=== PATIENT | female | born 1965 | race Caucasian/White ===

== ENCOUNTER 2016-10-20 13:17 | Outpatient (CLI) | payer OTHER | END 2016-10-20 13:18 | disposition home or self-care (01) | DX: M19.011 Primary osteoarthritis, right shoulder (principal); M75.51 Bursitis of right shoulder; M67.813 Other specified disorders of tendon, right shoulder ==

== ENCOUNTER 2017-04-18 08:50 | Outpatient (CLI) | payer OTHER ==
[2017-04-18 19:53] LABS: HEMOGLOBIN A1C 1.14 g/dL
[2017-04-18 19:55] LABS: ALBUMIN/GLOBULIN RATIO 1.4 (1.0-2.2); BILIRUBIN,TOTAL 0.7 mg/dL (0.2-1.0); BUN - BLOOD UREA NITROGEN 11 mg/dL (6-20); CALCIUM 9.6 mg/dL (8.5-10.3); CARBON DIOXIDE - CO2 26 mmol/L (21-32); CHLORIDE 103 mmol/L (101-111); CHOL/HDL RATIO 3.3 (<4.4); CHOLESTEROL 205 mg/dL; CREATININE 0.7 mg/dL (0.4-1.0); GFR - MDRD 88 (>89); GLUCOSE 191 mg/dL (70-100); HDL CHOLESTEROL 62 mg/dL; LDL/HDL RATIO 1.8 (<4.4); POTASSIUM 4.1 mmol/L (3.5-5.0); SODIUM 137 mmol/L (135-145); TOTAL PROTEIN 7.6 g/dL (6.7-8.2); TRIGLYCERIDES 151 mg/dL; VLDL CHOLESTEROL 30 mg/dL
== END 2017-04-18 08:51 | disposition home or self-care (01) ==
LOC: LAB.WCP 08:50
PROVIDERS: ATTEND Physician Assistant Medical
DX: E11.9 Type 2 diabetes mellitus without complications (principal)
CPT/HCPCS: 36415; 80053; 80061; 83036

== ENCOUNTER 2017-07-15 08:00 | Outpatient (CLI) | payer OTHER ==
[2017-07-15 19:16] LABS: HEMOGLOBIN A1C 1.07 g/dL
[2017-07-15 19:22] LABS: ALBUMIN/GLOBULIN RATIO 1.3 (1.0-2.2); BILIRUBIN,TOTAL 0.7 mg/dL (0.2-1.0); BUN - BLOOD UREA NITROGEN 11 mg/dL (6-20); CALCIUM 9.5 mg/dL (8.5-10.3); CARBON DIOXIDE - CO2 25 mmol/L (21-32); CHLORIDE 101 mmol/L (101-111); CHOL/HDL RATIO 2.9 (<4.4); CHOLESTEROL 214 mg/dL; CREATININE 0.7 mg/dL (0.4-1.0); GFR - MDRD 88 (>89); GLUCOSE 163 mg/dL (70-100); HDL CHOLESTEROL 74 mg/dL; LDL/HDL RATIO 1.5 (<4.4); LIPASE 77 U/L (22-51); POTASSIUM 4.2 mmol/L (3.5-5.0); SODIUM 137 mmol/L (135-145); TOTAL PROTEIN 7.8 g/dL (6.7-8.2); TRIGLYCERIDES 151 mg/dL; VLDL CHOLESTEROL 30 mg/dL
== END 2017-07-15 08:01 | disposition home or self-care (01) ==
LOC: LAB.WCP 08:00
PROVIDERS: ATTEND Physician Assistant Medical
DX: E11.9 Type 2 diabetes mellitus without complications (principal); K76.0 Fatty (change of) liver, not elsewhere classified
CPT/HCPCS: 36415; 80053; 80061; 83036; 83690

== ENCOUNTER 2017-10-11 08:00 | Outpatient (CLI) | payer OTHER ==
[2017-10-11 14:17] LABS: HB2 TOTAL 14.9 g/dL; HEMOGLOBIN A1C 1.08 g/dL; HEMOGLOBIN A1C % 8.8 % (4.6-6.2)
[2017-10-11 14:21] LABS: ALBUMIN 4.3 g/dL (3.2-5.5); ALBUMIN/GLOBULIN RATIO 1.4 (1.0-2.2); BILIRUBIN,TOTAL 0.6 mg/dL (0.2-1.0); CALCIUM 9.1 mg/dL (8.5-10.3); CREATININE 0.6 mg/dL (0.4-1.0); TOTAL PROTEIN 7.4 g/dL (6.7-8.2)
== END 2017-10-11 08:01 | disposition home or self-care (01) ==
LOC: LAB.WCP 08:00
PROVIDERS: ATTEND Physician Assistant Medical
DX: E11.9 Type 2 diabetes mellitus without complications (principal)
CPT/HCPCS: 36415; 80053; 83036

== ENCOUNTER 2017-11-08 13:53 | Outpatient (CLI) | payer OTHER ==
--- NOTE | 2017-11-11 11:14 | Mammography Report ---
DIGITAL SCREENING MAMMOGRAM: 11/08/2017 CLINICAL INDICATION: A 51-year-old with a history of late childbearing, history of benign left breast biopsy for screening. COMPARISON: 04/2016, 11/2014, 05/2013, 03/2012, 03/2011, 03/2010. TECHNIQUE: Routine CC and MLO projections were obtained of the breasts as well as bilateral laterally exaggerated craniocaudal views. FINDINGS: Scattered fibroglandular tissue is present within the breasts. There are no dominant masses, suspicious microcalcifications, or secondary signs of malignancy. In comparison to the previous studies, there are no significant changes. IMPRESSION: NO MAMMOGRAPHIC EVIDENCE OF MALIGNANCY. NO SIGNIFICANT INTERVAL CHANGES. RECOMMENDATION: Screening mammography is recommended annually. BIRADS CATEGORY 1 - NEGATIVE. STANDARD QUALIFYING STATEMENTS: 1. This examination was reviewed with the aid of Computed-Aided Detection (CAD). 2. A negative or benign imaging report should not delay biopsy if clinically suspicious findings are present. Consider surgical consultation if warranted. More than 5% of cancers are not identified by imaging. 3. Dense breasts may obscure an underlying neoplasm. TD: 11/11/2017 11:13
== END 2017-11-08 13:54 | disposition home or self-care (01) ==
LOC: DI.N 13:53
PROVIDERS: ATTEND Physician Assistant Medical
DX: Z12.31 Encounter for screening mammogram for malignant neoplasm of breast (principal)
CPT/HCPCS: 77067

== ENCOUNTER 2018-02-14 11:05 | Outpatient (CLI) | payer OTHER ==
[2018-02-14 19:33] LABS: ALBUMIN/GLOBULIN RATIO 1.3 (1.0-2.2); ALKALINE PHOSPHATASE 58 IU/L (42-121); ALT ALANINE AMINOTRANSFERASE 35 IU/L (10-60); AST ASPARTATE AMINOTRANSFERASE 37 IU/L (10-42); BILIRUBIN,TOTAL 0.9 mg/dL (0.2-1.0); BUN - BLOOD UREA NITROGEN 11 mg/dL (6-20); CALCIUM 9.1 mg/dL (8.5-10.3); CARBON DIOXIDE - CO2 26 mmol/L (21-32); CHLORIDE 104 mmol/L (101-111); CHOL/HDL RATIO 2.6 (<4.4); CHOLESTEROL 176 mg/dL; CREATININE 0.7 mg/dL (0.4-1.0); GFR - MDRD 88 (>89); GLUCOSE 168 mg/dL (70-100); HDL CHOLESTEROL 68 mg/dL; LDL CHOLESTEROL,CALCULATED 84 mg/dL; LDL/HDL RATIO 1.2 (<4.4); SODIUM 137 mmol/L (135-145); VLDL CHOLESTEROL 24 mg/dL
[2018-02-14 19:56] LABS: HB2 TOTAL 14.2 g/dL; HEMOGLOBIN A1C 1.08 g/dL; HEMOGLOBIN A1C % 9.1 % (4.6-6.2)
== END 2018-02-14 11:06 | disposition home or self-care (01) ==
LOC: LAB.WCP 11:05
PROVIDERS: ATTEND Physician Assistant Medical
DX: E11.9 Type 2 diabetes mellitus without complications (principal)
CPT/HCPCS: 36415; 80053; 80061; 83036; 83721

== ENCOUNTER 2018-05-17 18:17 | Emergency (ER) | payer OTHER ==
[2018-05-17] MEDS ORDERED: HYDROcod/ACETAM 5/325 MG TABLET PO STA (19:18)
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
[2018-05-17 20:36] VITALS: BP 137/63
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
== END 2018-05-17 21:13 | disposition home or self-care (01) ==
LOC: ED 18:17
DX: R51 Headache (principal); S13.9XXA Sprain of joints and ligaments of unspecified parts of neck, initial encounter; S40.012A Contusion of left shoulder, initial encounter; R03.0 Elevated blood-pressure reading, without diagnosis of hypertension; E11.9 Type 2 diabetes mellitus without complications; V53.5XXA Driver of pick-up truck or van injured in collision with car, pick-up truck or van in traffic accident, initial encounter
CPT/HCPCS: 70450; 72125; 73030; 99283; A9270

== ENCOUNTER 2018-06-18 11:11 | Outpatient (CLI) | payer OTHER ==
[2018-06-18 19:09] LABS: CALCIUM 9.5 mg/dL (8.5-10.3); CREATININE 0.7 mg/dL (0.4-1.0)
[2018-06-18 19:34] LABS: HB2 TOTAL 14.7 g/dL; HEMOGLOBIN A1C 1.15 g/dL; HEMOGLOBIN A1C % 9.3 % (4.6-6.2)
== END 2018-06-18 11:12 | disposition home or self-care (01) ==
LOC: LAB.WCP 11:11
PROVIDERS: ATTEND Physician Assistant Medical
DX: E11.9 Type 2 diabetes mellitus without complications (principal)
CPT/HCPCS: 36415; 80048; 83036

== ENCOUNTER 2018-11-17 08:30 | Outpatient (CLI) | payer OTHER ==
[2018-11-17 14:57] LABS: HB2 TOTAL 14.2 g/dL; HEMOGLOBIN A1C 1.17 g/dL; HEMOGLOBIN A1C % 9.7 % (4.6-6.2)
[2018-11-17 14:58] LABS: ALBUMIN 4.1 g/dL (3.2-5.5); ALBUMIN/GLOBULIN RATIO 1.3 (1.0-2.2); ALKALINE PHOSPHATASE 61 IU/L (42-121); ALT ALANINE AMINOTRANSFERASE 30 IU/L (10-60); AST ASPARTATE AMINOTRANSFERASE 30 IU/L (10-42); BILIRUBIN,TOTAL 0.7 mg/dL (0.2-1.0); BUN - BLOOD UREA NITROGEN 13 mg/dL (6-20); CALCIUM 9.2 mg/dL (8.5-10.3); CARBON DIOXIDE - CO2 26 mmol/L (21-32); CHLORIDE 104 mmol/L (101-111); CHOL/HDL RATIO 2.9 (<4.4); CHOLESTEROL 168 mg/dL; CREATININE 0.7 mg/dL (0.4-1.0); GFR - MDRD 88 (>89); GLUCOSE 174 mg/dL (70-100); HDL CHOLESTEROL 57 mg/dL; LDL CHOLESTEROL,CALCULATED 77 mg/dL; LDL/HDL RATIO 1.4 (<4.4); SODIUM 137 mmol/L (135-145); TOTAL PROTEIN 7.3 g/dL (6.7-8.2); VLDL CHOLESTEROL 34 mg/dL
== END 2018-11-17 08:31 | disposition home or self-care (01) ==
LOC: LAB.WCP 08:30
PROVIDERS: ATTEND Physician Assistant Medical
DX: E11.9 Type 2 diabetes mellitus without complications (principal)
CPT/HCPCS: 36415; 80053; 80061; 83036; 83721

== ENCOUNTER 2018-11-20 08:46 | Outpatient (CLI) | payer OTHER | END 2018-11-20 08:47 | disposition home or self-care (01) | LOC: LAB.WCP 08:46 | PROVIDERS: ATTEND Physician Assistant Medical | DX: K76.9 Liver disease, unspecified (principal) | CPT/HCPCS: 36415; 83690 ==

== ENCOUNTER 2018-11-25 14:24 | Outpatient (CLI) | payer OTHER ==
--- NOTE | 2018-11-26 09:24 | Mammography Report ---
Reason: SCREENING MAMMO Procedure Date: 11/25/2018 Accession Number: [id number] / [id number] Procedure: MGN - Screening Mammo Dig Bilat CPT Code: FULL RESULT: EXAM: Screening Mammo Dig Bilat DATE: 11/25/2018 2:50 PM CLINICAL HISTORY: Routine screening. Prior history of left breast biopsy. TECHNIQUE: (B) - Bilateral CC and MLO views were obtained. COMPARISON: 11/08/2017, 05/11/2016, 12/14/2014 and 06/04/2013. PARENCHYMAL PATTERN: (A) - The breasts demonstrate scattered fibroglandular densities bilaterally. FINDINGS: There is no significant interval change. There are no suspicious masses, calcifications, or areas of distortion. IMPRESSION: Negative examination. BI-RADS category 1. RECOMMENDATION: (ANNUAL) - Recommend routine annual screening mammography. BI-RADS CATEGORY: (1) - Negative. STANDARD QUALIFYING STATEMENTS: 1. This examination was not reviewed with the aid of Computer-Aided Detection (CAD). 2. A negative or benign imaging report should not preclude biopsy if clinically suspicious findings are present. 3. Dense breasts may obscure an underlying neoplasm. 4. This examination was reviewed without the aid of 3D breast imaging (tomosynthesis).
== END 2018-11-25 14:25 | disposition home or self-care (01) ==
LOC: DI.N 14:24
DX: Z12.31 Encounter for screening mammogram for malignant neoplasm of breast (principal)
CPT/HCPCS: 77067

== ENCOUNTER 2019-02-20 08:00 | Outpatient (CLI) | payer OTHER ==
[2019-02-20 14:24] LABS: HB2 TOTAL 14.3 g/dL
[2019-02-20 14:25] LABS: HEMOGLOBIN A1C 1.2 g/dL; HEMOGLOBIN A1C % 9.8 % (4.6-6.2)
[2019-02-20 16:25] LABS: CALCIUM 9.1 mg/dL (8.5-10.3); CREATININE 0.6 mg/dL (0.4-1.0)
== END 2019-02-20 23:59 | disposition home or self-care (01) ==
LOC: LAB.WCP 08:00
PROVIDERS: ATTEND Physician Assistant Medical
DX: E11.9 Type 2 diabetes mellitus without complications (principal)
CPT/HCPCS: 36415; 80048; 83036

== ENCOUNTER 2019-05-21 08:00 | Outpatient (CLI) | payer OTHER ==
[2019-05-21 18:53] LABS: ALBUMIN 4.4 g/dL (3.2-5.5); ALBUMIN/GLOBULIN RATIO 1.4 (1.0-2.2); ALKALINE PHOSPHATASE 53 IU/L (42-121); ALT ALANINE AMINOTRANSFERASE 28 IU/L (10-60); AST ASPARTATE AMINOTRANSFERASE 25 IU/L (10-42); BILIRUBIN,TOTAL 0.9 mg/dL (0.2-1.0); BUN - BLOOD UREA NITROGEN 11 mg/dL (6-20); CALCIUM 9.7 mg/dL (8.5-10.3); CARBON DIOXIDE - CO2 29 mmol/L (21-32); CHLORIDE 104 mmol/L (101-111); CHOL/HDL RATIO 3.3 (<4.4); CHOLESTEROL 186 mg/dL; CREATININE 0.8 mg/dL (0.4-1.0); GFR - MDRD 75 (>89); GLUCOSE 149 mg/dL (70-100); HDL CHOLESTEROL 56 mg/dL; LDL CHOLESTEROL,CALCULATED 79 mg/dL; LDL/HDL RATIO 1.4 (<4.4); SODIUM 143 mmol/L (135-145); TOTAL PROTEIN 7.6 g/dL (6.7-8.2); VLDL CHOLESTEROL 51 mg/dL
[2019-05-21 19:43] LABS: HB2 TOTAL 14.7 g/dL; HEMOGLOBIN A1C 0.88 g/dL; HEMOGLOBIN A1C % 7.6 % (4.6-6.2)
== END 2019-05-21 08:01 | disposition home or self-care (01) ==
LOC: LAB.WCP 08:00
PROVIDERS: ATTEND Physician Assistant Medical
DX: E11.9 Type 2 diabetes mellitus without complications (principal)
CPT/HCPCS: 36415; 80053; 80061; 83036; 83721

== ENCOUNTER 2019-05-26 07:00 | Outpatient (CLI) | payer OTHER | END 2019-05-26 23:59 | disposition home or self-care (01) | LOC: LAB.WCP 07:00 | PROVIDERS: ATTEND Physician Assistant Medical | DX: R21 Rash and other nonspecific skin eruption (principal) | CPT/HCPCS: 81599; 87070; 87205; 87254; 87255 ==

== ENCOUNTER 2019-05-26 14:30 | Outpatient (CLI) | payer OTHER ==
--- NOTE | 2019-05-26 15:59 | XRAY Report ---
Reason: LUMBAR RADICULOPATHY Procedure Date: 05/26/2019 Accession Number: [id number] / [id number] Procedure: WCP - Lumbar Spine 2 View CPT Code: FULL RESULT: EXAM: LUMBOSACRAL SPINE RADIOGRAPHY EXAM DATE: 05/26/2019 02:30 PM. CLINICAL HISTORY: LUMBAR RADICULOPATHY. COMPARISONS: None. TECHNIQUE: 2 views. FINDINGS: Alignment: No spondylolisthesis. Minimal dextroscoliosis with rotatory component. Bones: Five wsq-udr-dzlhtkq lumbar vertebral bodies are present. No fractures or bone lesions. Disks: Disk heights are maintained. Facets: No degenerative changes. Sacroiliac Joints: Minimal degenerative change Soft Tissues: Unremarkable IMPRESSION: Negative two-view lumbar spine radiography for age. If symptoms persist consider MRI. RADIA
== END 2019-05-26 23:59 | disposition home or self-care (01) ==
LOC: DI.WCP 14:30
PROVIDERS: ATTEND Physician Assistant Medical
DX: M47.898 Other spondylosis, sacral and sacrococcygeal region (principal); M54.16 Radiculopathy, lumbar region
CPT/HCPCS: 72100

== ENCOUNTER 2019-06-02 13:10 | Outpatient (CLI) | payer OTHER ==
--- NOTE | 2019-06-03 02:22 | MRI Report ---
Reason: LUMBAR RADICULOPATHY Procedure Date: 06/02/2019 Accession Number: [id number] / [id number] Procedure: MRI - Lumbar Spine W/O CPT Code: Final Report FULL RESULT: EXAM: MRI LUMBAR SPINE WITHOUT CONTRAST EXAM DATE: 06/02/2019 02:36 PM. CLINICAL HISTORY: LUMBAR RADICULOPATHY. COMPARISON: LUMBAR SPINE 2 VIEW 05/26/2019 2:08 PM. TECHNIQUE: Multiplanar, multisequence T1-weighted and fluid-sensitive sequences of the lumbar spine from T12 to S1 without contrast. Other: None. FINDINGS: Spinal Canal: The conus terminates at upper L2. The conus medullaris and cauda equina are unremarkable. Alignment: No scoliosis or spondylolisthesis. Bone Marrow: Five sjl-wgm-xeqxgap lumbar vertebral bodies are assumed. No gross fractures or bone lesions. No bone marrow replacement. Disk Levels/Facets: T12-L1: There is a plaque-like region of hypointense signal on all sequences contiguous with the posterior annulus, extending to the upper aspect of T12. This measures roughly 3.5 mm AP by 22 mm craniocaudal by 10 mm transverse. Adjacent disk space appears normal. This is felt likely to represent a region of calcification of the posterior longitudinal ligament. There is no impingement on the conus. L1-L2: Unremarkable. L2-L3: Unremarkable. L3-L4: Minimal disk space narrowing and minimal bulging disk. Mild ligamentum flavum hypertrophy. No significant appearing central stenosis. Foramina appear patent. L4-L5: Disk height is mildly narrowed, eccentric to the right. Bulging disk. Bilateral ligamentum flavum hypertrophy. Mild central stenosis. Right-sided disk/endplate osteophyte complex directed laterally. Right-sided mild foraminal stenosis, left foramen appears patent. L5-S1: Mild disk space narrowing. Bulging disk. Mild central stenosis. Moderate to severe left-sided foraminal stenosis. Right foramen is mildly narrowed. Musculature: Normal. No edema or fatty atrophy. Other: The partially visualized retroperitoneum is unremarkable. IMPRESSION: 1. Findings most consistent with a region of calcification of the posterior longitudinal ligament at T12 extending over the T12-L1 disk space. No impingement on the conus. 2. L3-L4: Minimal disk space narrowing and minimal bulging disk. Mild ligamentum flavum hypertrophy. No significant appearing central stenosis. Foramina appear patent. 3. L4-L5: Disk height is mildly narrowed, eccentric to the right. Bulging disk. Bilateral ligamentum flavum hypertrophy. Mild central stenosis. Right-sided disk/endplate osteophyte complex directed laterally. Right-sided mild foraminal stenosis, left foramen appears patent. 4. L5-S1: Mild disk space narrowing. Bulging disk. Mild central stenosis. Moderate to severe left-sided foraminal stenosis, correlate with left L5 symptoms. Right foramen is mildly narrowed.5. Other disk spaces are unremarkable. Comment: The following findings are so common in adults without low back pain that while we report their presence, they must be interpreted with caution and in the context of the clinical situation. (Reference Paulk et al, Spine 2001) Prevalence of findings in patients without low back pain: Disk degeneration (any evidence): 92% Disk desiccation/T2 signal loss: 83% Disk height loss: 56% Disk bulge: 64% Disk protrusion: 32% Annular tear/high intensity zone: 38% RADIA
== END 2019-06-02 13:11 | disposition home or self-care (01) ==
LOC: DI 13:10
PROVIDERS: ATTEND Physician Assistant Medical
DX: M51.16 Intervertebral disc disorders with radiculopathy, lumbar region (principal); M48.061 Spinal stenosis, lumbar region without neurogenic claudication
CPT/HCPCS: 72148

== ENCOUNTER 2019-08-28 08:00 | Outpatient (CLI) | payer OTHER ==
[2019-08-28 19:09] LABS: CALCIUM 9.6 mg/dL (8.5-10.3); CREATININE 0.7 mg/dL (0.4-1.0)
[2019-08-28 19:31] LABS: HB2 TOTAL 14.3 g/dL; HEMOGLOBIN A1C 0.83 g/dL; HEMOGLOBIN A1C % 7.5 % (4.6-6.2)
== END 2019-08-28 23:59 | disposition home or self-care (01) ==
LOC: LAB.WCP 08:00
PROVIDERS: ATTEND Physician Assistant Medical
DX: E11.9 Type 2 diabetes mellitus without complications (principal)
CPT/HCPCS: 36415; 80048; 83036

== ENCOUNTER 2019-12-25 08:00 | Outpatient (CLI) | payer OTHER ==
[2019-12-25 13:29] LABS: BASOPHILS # (AUTO) 0.1 10^3/uL (0.0-0.1); EOSINOPHILS # (AUTO) 0.2 10^3/uL (0.0-0.7); HGB - HEMOGLOBIN 13.3 g/dL (12.0-16.0); LYMPHOCYTES % (AUTO) 38.4 %; MEAN CORPUSCULAR HEMOGLOBIN 29.7 pg (27.0-31.0); MEAN CORPUSCULAR HGB CONC 32.7 g/dL (32.0-36.0); MEAN CORPUSCULAR VOLUME 90.8 fL (81.0-99.0); MEAN PLATELET VOLUME 8.9 fL (7.9-10.8); MONOCYTES # (AUTO) 0.4 10^3/uL (0.0-1.0); NEUTROPHILS # (AUTO) 2.7 10^3/uL (1.5-6.6); NEUTROPHILS % (AUTO) 50.4 %; PLT - PLATELET COUNT 242 10^3/uL (130-450); RED BLOOD COUNT 4.48 10^6/uL (4.20-5.40); RED CELL DISTRIBUTION WIDTH 11.9 % (12.0-15.0); WHITE BLOOD COUNT 5.3 x10^3/uL (4.8-10.8)
[2019-12-25 14:01] LABS: ALBUMIN 4.1 g/dL (3.2-5.5); ALBUMIN/GLOBULIN RATIO 1.2 (1.0-2.2); ALKALINE PHOSPHATASE 57 IU/L (42-121); ALT ALANINE AMINOTRANSFERASE 34 IU/L (10-60); AST ASPARTATE AMINOTRANSFERASE 32 IU/L (10-42); BILIRUBIN,TOTAL 0.6 mg/dL (0.2-1.0); BUN - BLOOD UREA NITROGEN 11 mg/dL (6-20); CALCIUM 9.6 mg/dL (8.5-10.3); CARBON DIOXIDE - CO2 27 mmol/L (21-32); CHLORIDE 103 mmol/L (101-111); CHOLESTEROL 198 mg/dL; CREATININE 0.8 mg/dL (0.4-1.0); GLUCOSE 143 mg/dL (70-100); HDL CHOLESTEROL 67 mg/dL; LDL CHOLESTEROL,CALCULATED 97 mg/dL; LDL/HDL RATIO 1.4 (<4.4); LIPASE 88 U/L (22-51); SODIUM 140 mmol/L (135-145); TOTAL PROTEIN 7.6 g/dL (6.7-8.2); VLDL CHOLESTEROL 34 mg/dL
[2019-12-25 14:10] LABS: HEMOGLOBIN A1C 0.75 g/dL; HEMOGLOBIN A1C % 7.1 % (4.6-6.2)
[2019-12-25 14:14] LABS: CREATININE,URINE 131.7 mg/dL; MICROALBUM/CREATININE RATIO,UR 73.7 ug/mg (<30.0); MICROALBUMIN,URINE 9.7 mg/dL (0-300.0)
== END 2019-12-25 23:59 | disposition home or self-care (01) ==
LOC: LAB.WCP 08:00
PROVIDERS: ATTEND Physician Assistant Medical
DX: E11.9 Type 2 diabetes mellitus without complications (principal); K86.1 Other chronic pancreatitis; K76.9 Liver disease, unspecified; R74.8 Abnormal levels of other serum enzymes
CPT/HCPCS: 36415; 80053; 80061; 82043; 82150; 82570; 83036; 83690; 83721; 84443; 85025

== ENCOUNTER 2020-01-15 11:02 | Outpatient (CLI) | payer OTHER ==
--- NOTE | 2020-01-18 12:27 | Mammography Report ---
BILATERAL DIGITAL SCREENING MAMMOGRAM 3D/2D: 01/15/2020 CLINICAL: Routine screening. Comparison is made to exams dated: 11/25/2018 mammogram, 11/08/2017 mammogram, and 05/11/2016 mammogra m - [facility]. There are scattered fibroglandular elements in both breasts. No significant masses, calcifications, or other findings are seen in either breast. There has been no significant interval change. IMPRESSION: NEGATIVE There is no mammographic evidence of malignancy. A 1 year screening mammogram is recommended. This exam was interpreted at Station ID: [id number]. NOTE: For mammograms, a report in lay terms will be sent to the patient. Approximately 15% of breast malignancies will not be visualized mammographically. In the management of a palpable breast mass, a negative mammogram must not discourage biopsy of a clinically suspicious lesion. Electronically Signed By: Miriam steve/penrad:01/15/2020 18:57:59 ACR BI-RADS Category 1: Negative 3341F PARENCHYMAL PATTERN: (A) - The breast(s) demonstrate(s) scattered fibroglandular densities. BI-RADS CATEGORY: (1) - 1 RECOMMENDATION: (ANNUAL) - Recommend routine annual screening mammography. [id number] 1 year screening LATERALITY: (B)
== END 2020-01-15 11:03 | disposition home or self-care (01) ==
LOC: DI 11:02
DX: Z12.31 Encounter for screening mammogram for malignant neoplasm of breast (principal)
CPT/HCPCS: 77063; 77067

== ENCOUNTER 2020-02-18 10:03 | Outpatient (CLI) | payer OTHER | END 2020-02-18 10:04 | disposition home or self-care (01) | LOC: DI 10:03 | PROVIDERS: ATTEND Physician Assistant Medical | DX: R01.1 Cardiac murmur, unspecified (principal) | CPT/HCPCS: 93306 ==

== ENCOUNTER 2020-03-25 08:45 | Outpatient (CLI) | payer OTHER ==
[2020-03-25 11:57] LABS: CALCIUM 9.8 mg/dL (8.5-10.3); CREATININE 0.8 mg/dL (0.4-1.0)
[2020-03-25 12:34] LABS: HEMOGLOBIN A1c% 7.7 % (4.27-6.07)
== END 2020-03-25 08:46 | disposition home or self-care (01) ==
LOC: LAB.WCP 08:45
PROVIDERS: ATTEND Physician Assistant Medical
DX: E11.9 Type 2 diabetes mellitus without complications (principal)
CPT/HCPCS: 36415; 80048; 83036

== ENCOUNTER 2020-07-01 10:54 | Outpatient (CLI) | payer OTHER ==
[2020-07-01 18:59] LABS: ALBUMIN 4.5 g/dL (3.2-5.5); ALBUMIN/GLOBULIN RATIO 1.3 (1.0-2.2); ALKALINE PHOSPHATASE 65 IU/L (42-121); ALT ALANINE AMINOTRANSFERASE 35 IU/L (10-60); AST ASPARTATE AMINOTRANSFERASE 32 IU/L (10-42); BILIRUBIN,TOTAL 0.7 mg/dL (0.2-1.0); BUN - BLOOD UREA NITROGEN 14 mg/dL (6-20); CALCIUM 9.9 mg/dL (8.5-10.3); CARBON DIOXIDE - CO2 27 mmol/L (21-32); CHLORIDE 106 mmol/L (101-111); CHOL/HDL RATIO 3.1 (<4.4); CHOLESTEROL 213 mg/dL; GLUCOSE 159 mg/dL (70-100); HDL CHOLESTEROL 68 mg/dL; LDL CHOLESTEROL,CALCULATED 114 mg/dL; LDL/HDL RATIO 1.7 (<4.4); SODIUM 142 mmol/L (135-145); VLDL CHOLESTEROL 31 mg/dL
[2020-07-01 20:06] LABS: HEMOGLOBIN A1c% 7.4 % (4.27-6.07)
== END 2020-07-01 23:59 | disposition home or self-care (01) ==
LOC: LAB.WCP 10:54
PROVIDERS: ATTEND Physician Assistant Medical
DX: E11.9 Type 2 diabetes mellitus without complications (principal)
CPT/HCPCS: 36415; 80053; 80061; 83036; 83721

== ENCOUNTER 2020-10-07 08:41 | Outpatient (CLI) | payer OTHER ==
[2020-10-07 13:38] LABS: ALBUMIN 4.4 g/dL (3.2-5.5); ALBUMIN/GLOBULIN RATIO 1.3 (1.0-2.2); ALKALINE PHOSPHATASE 67 IU/L (42-121); ALT ALANINE AMINOTRANSFERASE 28 IU/L (10-60); AST ASPARTATE AMINOTRANSFERASE 25 IU/L (10-42); BILIRUBIN,TOTAL 0.7 mg/dL (0.2-1.0); BUN - BLOOD UREA NITROGEN 15 mg/dL (6-20); CALCIUM 9.7 mg/dL (8.5-10.3); CARBON DIOXIDE - CO2 27 mmol/L (21-32); CHLORIDE 104 mmol/L (101-111); CHOL/HDL RATIO 2.8 (<4.4); CHOLESTEROL 187 mg/dL; GFR - MDRD 58 (>89); GLUCOSE 152 mg/dL (70-100); HDL CHOLESTEROL 68 mg/dL; LDL CHOLESTEROL,CALCULATED 89 mg/dL; LDL/HDL RATIO 1.3 (<4.4); POTASSIUM 3.7 mmol/L (3.5-5.0); SODIUM 140 mmol/L (135-145); TOTAL PROTEIN 7.8 g/dL (6.7-8.2); TRIGLYCERIDES 151 mg/dL; VLDL CHOLESTEROL 30 mg/dL
[2020-10-07 14:18] LABS: ESTIMATED AVERAGE GLUCOSE 169 mg/dL (70-100); HEMOGLOBIN A1c% 7.5 % (4.27-6.07)
== END 2020-10-07 23:59 | disposition home or self-care (01) ==
LOC: LAB.WCP 08:41
PROVIDERS: ATTEND Physician Assistant Medical
DX: E11.9 Type 2 diabetes mellitus without complications (principal)
CPT/HCPCS: 36415; 80053; 80061; 83036; 83721

== ENCOUNTER 2021-01-09 08:00 | Outpatient (CLI) | payer OTHER ==
[2021-01-09 12:34] LABS: ALBUMIN 4.5 g/dL (3.2-5.5); ALBUMIN/GLOBULIN RATIO 1.5 (1.0-2.2); BILIRUBIN,TOTAL 0.7 mg/dL (0.2-1.0); CALCIUM 10.2 mg/dL (8.5-10.3); CREATININE 0.9 mg/dL (0.4-1.0); POTASSIUM 4.5 mmol/L (3.5-5.0); TOTAL PROTEIN 7.5 g/dL (6.7-8.2)
[2021-01-09 12:53] LABS: ESTIMATED AVERAGE GLUCOSE 157 mg/dL (70-100); HEMOGLOBIN A1c% 7.1 % (4.27-6.07)
== END 2021-01-09 23:59 | disposition home or self-care (01) ==
LOC: LAB.WCP 08:00
PROVIDERS: ATTEND Physician Assistant Medical
DX: E11.9 Type 2 diabetes mellitus without complications (principal)
CPT/HCPCS: 36415; 80053; 83036

== ENCOUNTER 2021-04-10 08:00 | Outpatient (CLI) | payer OTHER ==
[2021-04-10 11:57] LABS: BASOPHILS # (AUTO) 0.1 10^3/uL (0.0-0.1); EOSINOPHILS # (AUTO) 0.2 10^3/uL (0.0-0.7); EOSINOPHILS % (AUTO) 4.2 %; HCT - HEMATOCRIT 40.9 % (37.0-47.0); HGB - HEMOGLOBIN 12.9 g/dL (12.0-16.0); LYMPHOCYTES % (AUTO) 39.4 %; MEAN CORPUSCULAR HEMOGLOBIN 29.1 pg (27.0-31.0); MEAN CORPUSCULAR HGB CONC 31.5 g/dL (32.0-36.0); MEAN CORPUSCULAR VOLUME 92.1 fL (81.0-99.0); MEAN PLATELET VOLUME 9.1 fL (7.9-10.8); MONOCYTES # (AUTO) 0.3 10^3/uL (0.0-1.0); MONOCYTES % (AUTO) 6.2 %; NEUTROPHILS # (AUTO) 2.5 10^3/uL (1.5-6.6); PLT - PLATELET COUNT 253 10^3/uL (130-450); RED BLOOD COUNT 4.44 10^6/uL (4.20-5.40)
[2021-04-10 12:13] LABS: CREATININE,URINE 143.5 mg/dL; MICROALBUM/CREATININE RATIO,UR 17.4 ug/mg (<30.0); MICROALBUMIN,URINE 2.5 mg/dL (0-300.0)
[2021-04-10 12:23] LABS: THYROID STIMULATING HORMONE 5.11 uIU/mL (0.34-5.60)
[2021-04-10 12:26] LABS: ALBUMIN 4.2 g/dL (3.2-5.5); ALBUMIN/GLOBULIN RATIO 1.5 (1.0-2.2); ALKALINE PHOSPHATASE 63 IU/L (42-121); ALT ALANINE AMINOTRANSFERASE 27 IU/L (10-60); AMYLASE 108 U/L (28-100); AST ASPARTATE AMINOTRANSFERASE 27 IU/L (10-42); BILIRUBIN,TOTAL 0.7 mg/dL (0.2-1.0); BUN - BLOOD UREA NITROGEN 10 mg/dL (6-20); CALCIUM 9.5 mg/dL (8.5-10.3); CARBON DIOXIDE - CO2 26 mmol/L (21-32); CHLORIDE 107 mmol/L (101-111); CHOL/HDL RATIO 3.2 (<4.4); CHOLESTEROL 197 mg/dL; CREATININE 0.8 mg/dL (0.4-1.0); GFR - MDRD 74 (>89); GLUCOSE 143 mg/dL (70-100); HDL CHOLESTEROL 62 mg/dL; LDL CHOLESTEROL,CALCULATED 102 mg/dL; LDL/HDL RATIO 1.6 (<4.4); LIPASE 79 U/L (22-51); POTASSIUM 4.3 mmol/L (3.5-5.0); SODIUM 145 mmol/L (135-145); TRIGLYCERIDES 163 mg/dL; VLDL CHOLESTEROL 33 mg/dL
[2021-04-10 12:46] LABS: ESTIMATED AVERAGE GLUCOSE 157 mg/dL (70-100); HEMOGLOBIN A1c% 7.1 % (4.27-6.07)
== END 2021-04-10 23:59 | disposition home or self-care (01) ==
LOC: LAB.WCP 08:00
PROVIDERS: ATTEND Physician Assistant Medical
DX: Z00.00 Encounter for general adult medical examination without abnormal findings (principal); E11.9 Type 2 diabetes mellitus without complications; K86.1 Other chronic pancreatitis; K76.0 Fatty (change of) liver, not elsewhere classified; R74.8 Abnormal levels of other serum enzymes; E78.5 Hyperlipidemia, unspecified
CPT/HCPCS: 36415; 80053; 80061; 82043; 82150; 82570; 83036; 83690; 83721; 84443; 85025

== ENCOUNTER 2021-04-14 12:01 | Outpatient (CLI) | payer OTHER ==
--- NOTE | 2021-04-14 13:22 | XRAY Report ---
PROCEDURE: Foot 3 View LT INDICATIONS: LEFT FOOT PAIN TECHNIQUE: 4 views of the foot were acquired. COMPARISON: None. FINDINGS: Bones: No acute fractures or dislocations. No suspicious bony lesions. Small posterior and plantar calcaneal enthesophytes. Soft tissues: No suspicious soft tissue calcification. IMPRESSION: 1. No acute osseous abnormality. If symptoms persist or there is continued clinical concern, further evaluation with MRI or CT may be helpful. 2. Small anterior and posterior calcaneal spurs. Reviewed by: Jignesh Green MD on 04/14/2021 1:21 PM PDT Approved by: Jignesh Green MD on 04/14/2021 1:21 PM PDT Station ID: [id number]
== END 2021-04-14 12:02 | disposition home or self-care (01) ==
LOC: DI.N 12:01
PROVIDERS: ATTEND Physician Assistant Medical
DX: M77.32 Calcaneal spur, left foot (principal)

== ENCOUNTER 2021-09-27 13:11 | Outpatient (CLI) | payer OTHER ==
--- NOTE | 2021-09-28 11:37 | Mammography Report ---
BILATERAL DIGITAL SCREENING MAMMOGRAM 3D/2D: 09/27/2021 CLINICAL: Routine screening. Comparison is made to exams dated: 01/15/2020 mammogram, 11/25/2018 mammogram, 11/08/2017 mammogram, mammogram, 12/14/2014 mammogram, and 06/04/2013 mammogram - [facility]. The re are scattered fibroglandular elements in both breasts. No significant masses, calcifications, or other findings are seen in either breast. There has been no significant interval change. IMPRESSION: NEGATIVE There is no mammographic evidence of malignancy. A 1 year screening mammogram is recommended. This exam was interpreted at Station ID: [id number]. NOTE: For mammograms, a report in lay terms will be sent to the patient. Approximately 15% of breast malignancies will not be visualized mammographically. In the management of a palpable breast mass, a negative mammogram must not discourage biopsy of a clinically suspicious lesion. Electronically Signed By: Tahmina robert/[place]:09/27/2021 16:14:01 ACR BI-RADS Category 1: Negative 3341F PARENCHYMAL PATTERN: (A) - The breast(s) demonstrate(s) scattered fibroglandular densities. BI-RADS CATEGORY: (1) - 1 RECOMMENDATION: (ANNUAL) - Recommend routine annual screening mammography. [id number] 1 year screening LATERALITY: (B)
== END 2021-09-27 13:12 | disposition home or self-care (01) ==
LOC: DI.N 13:11
DX: Z12.31 Encounter for screening mammogram for malignant neoplasm of breast (principal)

== ENCOUNTER 2021-10-06 07:28 | Outpatient (CLI) | payer OTHER ==
[2021-10-06 12:15] LABS: ESTIMATED AVERAGE GLUCOSE 166 mg/dL (70-100); HEMOGLOBIN A1c% 7.4 % (4.27-6.07)
[2021-10-06 12:26] LABS: BUN - BLOOD UREA NITROGEN 11 mg/dL (6-20); CALCIUM 9.8 mg/dL (8.5-10.3); CARBON DIOXIDE - CO2 26 mmol/L (21-32); CHLORIDE 101 mmol/L (101-111); CHOL/HDL RATIO 2.3 (<4.4); CHOLESTEROL 182 mg/dL; GFR - MDRD 57 (>89); GLUCOSE 123 mg/dL (70-100); HDL CHOLESTEROL 78 mg/dL; LDL CHOLESTEROL,CALCULATED 70 mg/dL; LDL/HDL RATIO 0.9 (<4.4); POTASSIUM 3.4 mmol/L (3.5-5.0); SODIUM 139 mmol/L (135-145); TRIGLYCERIDES 169 mg/dL; VLDL CHOLESTEROL 34 mg/dL
== END 2021-10-06 07:29 | disposition home or self-care (01) ==
LOC: LAB.N 07:28
PROVIDERS: ATTEND Physician Assistant Medical
DX: E11.9 Type 2 diabetes mellitus without complications (principal)
CPT/HCPCS: 36415; 80048; 80061; 83036; 83721

== ENCOUNTER 2022-01-05 07:33 | Outpatient (CLI) | payer OTHER ==
[2022-01-05 12:39] LABS: ESTIMATED AVERAGE GLUCOSE 148 mg/dL (70-100); HEMOGLOBIN A1c% 6.8 % (4.27-6.07)
[2022-01-05 12:44] LABS: CALCIUM 9.8 mg/dL (8.5-10.3); CREATININE 0.8 mg/dL (0.4-1.0); POTASSIUM 4.3 mmol/L (3.5-5.0)
== END 2022-01-05 07:34 | disposition home or self-care (01) ==
LOC: LAB.N 07:33
PROVIDERS: ATTEND Physician Assistant Medical
DX: E11.9 Type 2 diabetes mellitus without complications (principal)
CPT/HCPCS: 36415; 80048; 83036

== ENCOUNTER 2022-06-29 07:27 | Outpatient (CLI) | payer OTHER ==
[2022-06-29 12:16] LABS: BASOPHILS # (AUTO) 0.1 10^3/uL (0.0-0.1); BASOPHILS % (AUTO) 1.1 %; EOSINOPHILS # (AUTO) 0.2 10^3/uL (0.0-0.7); EOSINOPHILS % (AUTO) 3.9 %; HCT - HEMATOCRIT 40.4 % (37.0-47.0); HGB - HEMOGLOBIN 13.3 g/dL (12.0-16.0); LYMPHOCYTES # (AUTO) 2.4 10^3/uL (1.5-3.5); LYMPHOCYTES % (AUTO) 38.9 %; MEAN CORPUSCULAR HEMOGLOBIN 29.9 pg (27.0-31.0); MEAN CORPUSCULAR HGB CONC 32.9 g/dL (32.0-36.0); MEAN CORPUSCULAR VOLUME 90.8 fL (81.0-99.0); MEAN PLATELET VOLUME 9.1 fL (7.9-10.8); MONOCYTES # (AUTO) 0.5 10^3/uL (0.0-1.0); NEUTROPHILS % (AUTO) 47.9 %; PLT - PLATELET COUNT 263 10^3/uL (130-450); RED BLOOD COUNT 4.45 10^6/uL (4.20-5.40); RED CELL DISTRIBUTION WIDTH 12.3 % (12.0-15.0); WHITE BLOOD COUNT 6.2 x10^3/uL (4.8-10.8)
[2022-06-29 12:42] LABS: ALBUMIN 4.2 g/dL (3.2-5.5); ALBUMIN/GLOBULIN RATIO 1.2 (1.0-2.2); ALKALINE PHOSPHATASE 66 IU/L (42-121); ALT ALANINE AMINOTRANSFERASE 40 IU/L (10-60); AST ASPARTATE AMINOTRANSFERASE 43 IU/L (10-42); BILIRUBIN,TOTAL 0.5 mg/dL (0.2-1.0); BUN - BLOOD UREA NITROGEN 14 mg/dL (6-20); CALCIUM 9.9 mg/dL (8.5-10.3); CARBON DIOXIDE - CO2 29 mmol/L (21-32); CHLORIDE 101 mmol/L (101-111); CHOL/HDL RATIO 3.1 (<4.4); CHOLESTEROL 184 mg/dL; CREATININE 0.8 mg/dL (0.4-1.0); GFR - MDRD 74 (>89); GLUCOSE 148 mg/dL (70-100); HDL CHOLESTEROL 60 mg/dL; LDL CHOLESTEROL,CALCULATED 88 mg/dL; LDL/HDL RATIO 1.5 (<4.4); POTASSIUM 4.3 mmol/L (3.5-5.0); SODIUM 139 mmol/L (135-145); TOTAL PROTEIN 7.8 g/dL (6.7-8.2); TRIGLYCERIDES 178 mg/dL; VLDL CHOLESTEROL 36 mg/dL
[2022-06-29 12:45] LABS: CREATININE,URINE 234.4 mg/dL; MICROALBUM/CREATININE RATIO,UR 61.4 ug/mg (<30.0); MICROALBUMIN,URINE 14.4 mg/dL (0-300.0)
[2022-06-29 12:49] LABS: THYROID STIMULATING HORMONE 8.09 uIU/mL (0.34-5.60)
[2022-06-29 13:31] LABS: ESTIMATED AVERAGE GLUCOSE 160 mg/dL (70-100); HEMOGLOBIN A1c% 7.2 % (4.27-6.07)
[2022-06-29 15:07] LABS: FREE T4 (FREE THYROXINE) 0.78 ng/dL (0.58-1.64)
== END 2022-06-29 07:28 | disposition home or self-care (01) ==
LOC: LAB.N 07:27
PROVIDERS: ATTEND Physician Assistant Medical
DX: Z00.00 Encounter for general adult medical examination without abnormal findings (principal); E11.9 Type 2 diabetes mellitus without complications
CPT/HCPCS: 36415; 80053; 80061; 82043; 82570; 83036; 83721; 84439; 84443; 85025

== ENCOUNTER 2022-11-02 07:16 | Outpatient (CLI) | payer OTHER ==
[2022-11-02 12:07] LABS: CALCIUM 9.9 mg/dL (8.5-10.3); CREATININE 0.8 mg/dL (0.4-1.0); POTASSIUM 3.9 mmol/L (3.5-5.0)
[2022-11-02 12:11] LABS: THYROID STIMULATING HORMONE 2.98 uIU/mL (0.34-5.60)
[2022-11-02 12:15] LABS: ESTIMATED AVERAGE GLUCOSE 151 mg/dL (70-100); HEMOGLOBIN A1c% 6.9 % (4.27-6.07)
== END 2022-11-02 07:17 | disposition home or self-care (01) ==
LOC: LAB.N 07:16
PROVIDERS: ATTEND Physician Assistant Medical
DX: E11.9 Type 2 diabetes mellitus without complications (principal); E03.9 Hypothyroidism, unspecified; K86.1 Other chronic pancreatitis
CPT/HCPCS: 36415; 80048; 83036; 83690; 84443

== ENCOUNTER 2022-11-12 13:35 | Outpatient (CLI) | payer OTHER ==
--- NOTE | 2022-11-14 10:04 | Mammography Report ---
BILATERAL DIGITAL SCREENING MAMMOGRAM 3D/2D: 11/12/2022 CLINICAL: Routine screening. Comparison is made to exams dated: 09/27/2021 mammogram, 01/15/2020 mammogram, 11/25/2018 mammogram, 10/27 mammogram, 05/11/2016 mammogram, and 12/14/2014 mammogram - [facility]. There are scattered areas of fibroglandular density in both breasts (category b / 25%-50% glandular t issue). No significant masses, calcifications, or other findings are seen in either breast. There has been no significant interval change. IMPRESSION: NEGATIVE There is no mammographic evidence of malignancy. A 1 year screening mammogram is recommended. Based on the Tyrer Cuzick model (a risk assessment model) the patients lifetime risk is 9.3% and her 10 year risk is 3.2%. According to the ACR, ACS, and NCCN guidelines, an annual breast MRI exam elizabeth g with mammogram is recommended if the patients lifetime risk is 20% or greater. This exam was interpreted at Station ID: [id number]. NOTE: For mammograms, a report in lay terms will be sent to the patient. Approximately 15% of breast malignancies will not be visualized mammographically. In the management of a palpable breast mass, a negative mammogram must not discourage biopsy of a clinically suspicious lesion. Electronically Signed By: Tien santiago/[place]:11/12/2022 17:12:25 letter sent: No_Letter ACR BI-RADS Category 1: Negative 3341F PARENCHYMAL PATTERN: (A) - The breast(s) demonstrate(s) scattered fibroglandular densities. BI-RADS CATEGORY: (1) - 1 Mammogram [id number] 1 year screening LATERALITY: (B)
== END 2022-11-12 13:36 | disposition home or self-care (01) ==
LOC: DI.N 13:35
DX: Z12.31 Encounter for screening mammogram for malignant neoplasm of breast (principal)

== ENCOUNTER 2022-11-17 11:29 | Outpatient (CLI) | payer OTHER ==
[2022-11-17] MEDS ORDERED: iohexoL-300 100 ML VIAL ONE (11:36)
[2022-11-17] MEDS ORDERED: DIATR MEGLU/DIATRIZOATE SODIUM 120 ML BOTTLE ONE (11:36)
[2022-11-17] MEDS ORDERED: DIATRIZOATE MEGLU/DIATRIZO SOD 30 ML BOTTLE PO ONE (12:51)
[2022-11-17] MEDS ORDERED: iohexoL-300 100 ML VIAL IVP ONE (12:51)
--- NOTE | 2022-11-17 14:05 | CT Report ---
PROCEDURE: CT abdomen pelvis with contrast INDICATIONS: CHRONIC PANCREATITIS TECHNIQUE: After the administration of contrast, 5 mm thick sections acquired from the diaphragms to the symphys is. 5 mm thick coronal and sagittal reformats were acquired. For radiation dose reduction, the foll owing was used: automated exposure control, adjustment of mA and/or kV according to patient size. COMPARISON: None FINDINGS: Lower thorax: The lung bases are clear. Heart size normal. No hiatal hernia. Liver:Liver shows diffusely decreased attenuation without focal mass lesion. Biliary system: No calcified cholelithiasis or pericholecystic inflammation. No evidence of bile du ct dilatation. Pancreas: Unremarkable without mass or inflammation evident. Spleen: Normal in size and density. Adrenals: Normal morphology and density. Reproductive system: Unremarkable as visualized. Urinary system: Normal renal size and attenuation. No renal calculi, hydronephrosis, or solid mass p resent. Urinary bladder unremarkable. Gastrointestinal system: The bowel appears unremarkable with no evidence of bowel obstruction or inf lammation. The stomach appears unremarkable. Appendix: No findings to suggest acute appendicitis. Peritoneal spaces: No mesenteric or retroperitoneal adenopathy. No free air. No free fluid. Vasculature: Atherosclerotic vascular calcification abdominal aorta without aneurysm Musculoskeletal: Normal bone mineralization. No acute fractures. Abdominal wall intact without hasmukh dence of ventral or inguinal hernias. IMPRESSION:Hepatic fatty infiltration without focal mass lesion Reviewed by: Kedar Chaudhari MD on 11/17/2022 1:03 PM CHENCHO Approved by: Kedar Chaudhari MD on 11/17/2022 1:03 PM AKJEFFERSON Station ID: [id number]
== END 2022-11-17 11:30 | disposition home or self-care (01) ==
LOC: DI 11:29
PROVIDERS: ATTEND Physician Assistant Medical
DX: K76.0 Fatty (change of) liver, not elsewhere classified (principal)
CPT/HCPCS: 74177; Q9963; Q9967

== ENCOUNTER 2023-05-03 07:06 | Outpatient (CLI) | payer OTHER ==
[2023-05-03 12:01] LABS: ESTIMATED AVERAGE GLUCOSE 174 mg/dL (70-100); HEMOGLOBIN A1c% 7.7 % (4.27-6.07)
[2023-05-03 12:27] LABS: ALBUMIN 4.6 g/dL (3.2-5.5); ALBUMIN/GLOBULIN RATIO 1.5 (1.0-2.2); ALKALINE PHOSPHATASE 76 IU/L (42-121); ALT ALANINE AMINOTRANSFERASE 60 IU/L (10-60); AST ASPARTATE AMINOTRANSFERASE 58 IU/L (10-42); BILIRUBIN,TOTAL 0.4 mg/dL (0.2-1.0); BUN - BLOOD UREA NITROGEN 10 mg/dL (6-20); CALCIUM 9.9 mg/dL (8.5-10.3); CARBON DIOXIDE - CO2 29 mmol/L (21-32); CHLORIDE 104 mmol/L (101-111); CHOL/HDL RATIO 2.6 (<4.4); CHOLESTEROL 186 mg/dL; CREATININE 0.9 mg/dL (0.6-1.3); GFR - MDRD 64 (>89); GLUCOSE 108 mg/dL (74-104); HDL CHOLESTEROL 72 mg/dL; LDL CHOLESTEROL,CALCULATED 89 mg/dL; LDL/HDL RATIO 1.2 (<4.4); POTASSIUM 3.8 mmol/L (3.5-4.5); SODIUM 140 mmol/L (135-145); TOTAL PROTEIN 7.6 g/dL (6.4-8.9); TRIGLYCERIDES 125 mg/dL (48-352); VLDL CHOLESTEROL 25 mg/dL
== END 2023-05-03 07:07 | disposition home or self-care (01) ==
LOC: LAB.N 07:06
PROVIDERS: ATTEND Physician Assistant Medical
DX: E11.9 Type 2 diabetes mellitus without complications (principal)
CPT/HCPCS: 36415; 80053; 80061; 83036; 83721

== ENCOUNTER 2023-05-22 09:27 | Outpatient (CLI) | payer OTHER ==
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
== END 2023-05-22 09:28 | disposition home or self-care (01) ==
LOC: DI 09:27
PROVIDERS: ATTEND Physician Assistant Medical
DX: Z78.0 Asymptomatic menopausal state (principal); M85.80 Other specified disorders of bone density and structure, unspecified site

== ENCOUNTER 2023-08-09 07:14 | Outpatient (CLI) | payer OTHER ==
[2023-08-09 12:08] LABS: BASOPHILS # (AUTO) 0.1 10^3/uL (0.0-0.1); BASOPHILS % (AUTO) 1.1 %; EOSINOPHILS # (AUTO) 0.4 10^3/uL (0.0-0.7); EOSINOPHILS % (AUTO) 5.5 %; HCT - HEMATOCRIT 42.3 % (37.0-47.0); HGB - HEMOGLOBIN 13.6 g/dL (12.0-16.0); LYMPHOCYTES # (AUTO) 2.7 10^3/uL (1.5-3.5); LYMPHOCYTES % (AUTO) 40.4 %; MEAN CORPUSCULAR HEMOGLOBIN 29.1 pg (27.0-31.0); MEAN CORPUSCULAR HGB CONC 32.2 g/dL (32.0-36.0); MEAN CORPUSCULAR VOLUME 90.4 fL (81.0-99.0); MEAN PLATELET VOLUME 8.8 fL (7.9-10.8); MONOCYTES # (AUTO) 0.5 10^3/uL (0.0-1.0); NEUTROPHILS % (AUTO) 45.7 %; PLT - PLATELET COUNT 253 10^3/uL (130-450); RED BLOOD COUNT 4.68 10^6/uL (4.20-5.40); WHITE BLOOD COUNT 6.6 x10^3/uL (4.8-10.8)
[2023-08-09 12:43] LABS: ESTIMATED AVERAGE GLUCOSE 192 mg/dL (70-100); HEMOGLOBIN A1c% 8.3 % (4.27-6.07)
[2023-08-09 12:54] LABS: ALBUMIN 4.5 g/dL (3.2-5.5); ALBUMIN/GLOBULIN RATIO 1.5 (1.0-2.2); ALKALINE PHOSPHATASE 72 IU/L (42-121); ALT ALANINE AMINOTRANSFERASE 53 IU/L (10-60); AST ASPARTATE AMINOTRANSFERASE 53 IU/L (10-42); BILIRUBIN,TOTAL 0.5 mg/dL (0.2-1.0); BUN - BLOOD UREA NITROGEN 12 mg/dL (6-20); CALCIUM 10.1 mg/dL (8.5-10.3); CARBON DIOXIDE - CO2 29 mmol/L (21-32); CHLORIDE 102 mmol/L (101-111); CHOL/HDL RATIO 2.8 (<4.4); CHOLESTEROL 198 mg/dL; CREATININE 0.8 mg/dL (0.6-1.3); GFR - MDRD 74 (>89); GLUCOSE 116 mg/dL (74-104); HDL CHOLESTEROL 70 mg/dL; LDL CHOLESTEROL,CALCULATED 87 mg/dL; LDL/HDL RATIO 1.2 (<4.4); POTASSIUM 3.9 mmol/L (3.5-4.5); SODIUM 140 mmol/L (135-145); TOTAL PROTEIN 7.5 g/dL (6.4-8.9); TRIGLYCERIDES 204 mg/dL (48-352); VLDL CHOLESTEROL 41 mg/dL
[2023-08-09 12:57] LABS: CREATININE,URINE 87.2 mg/dL; MICROALBUM/CREATININE RATIO,UR 16.1 ug/mg (<30.0); MICROALBUMIN,URINE 1.4 mg/dL; THYROID STIMULATING HORMONE 3.32 uIU/mL (0.34-5.60)
== END 2023-08-09 07:15 | disposition home or self-care (01) ==
LOC: LAB.N 07:14
PROVIDERS: ATTEND Physician Assistant Medical
DX: Z00.00 Encounter for general adult medical examination without abnormal findings (principal); E78.5 Hyperlipidemia, unspecified; E11.9 Type 2 diabetes mellitus without complications; E03.9 Hypothyroidism, unspecified
CPT/HCPCS: 36415; 80053; 80061; 82043; 82570; 83036; 83721; 84443; 85025

== ENCOUNTER 2023-11-08 09:52 | Outpatient (CLI) | payer OTHER ==
[2023-11-08 12:30] LABS: ESTIMATED AVERAGE GLUCOSE 220 mg/dL (70-100); HEMOGLOBIN A1c% 9.3 % (4.27-6.07)
[2023-11-08 12:41] LABS: CALCIUM 10.3 mg/dL (8.5-10.3); CREATININE 0.9 mg/dL (0.6-1.3); POTASSIUM 4.4 mmol/L (3.5-4.5)
== END 2023-11-08 09:53 | disposition home or self-care (01) ==
LOC: LAB.N 09:52
PROVIDERS: ATTEND Physician Assistant Medical
DX: E11.9 Type 2 diabetes mellitus without complications (principal)
CPT/HCPCS: 36415; 80048; 83036

== ENCOUNTER 2023-12-10 12:24 | Outpatient (CLI) | payer OTHER ==
--- NOTE | 2023-12-11 09:28 | Mammography Report ---
BILATERAL DIGITAL SCREENING MAMMOGRAM 3D/2D: 12/10/2023 CLINICAL: Routine screening. Comparison is made to exams dated: 11/12/2022 mammogram, 09/27/2021 mammogram, 01/15/2020 mammogram, 10/29 mammogram, 11/08/2017 mammogram, and 05/11/2016 mammogram - [facility]. There are scattered areas of fibroglandular density in both breasts (category b / 25%-50% glandular t issue). No significant masses, calcifications, or other findings are seen in either breast. There has been no significant interval change. IMPRESSION: NEGATIVE There is no mammographic evidence of malignancy. A 1 year screening mammogram is recommended. Based on the Tyrer Cuzick model (a risk assessment model) the patient's lifetime risk is 9.1% and her 10 year risk is 3.3%. According to the ACR, ACS, and NCCN guidelines, an annual breast MRI exam elizabeth g with mammogram is recommended if the patient's lifetime risk is 20% or greater. This exam was interpreted at Station ID: [id number]. NOTE: For mammograms, a report in lay terms will be sent to the patient. Approximately 15% of breast malignancies will not be visualized mammographically. In the management of a palpable breast mass, a negative mammogram must not discourage biopsy of a clinically suspicious lesion. Electronically Signed By: Tien Figueroa M.D. aty/isabellarad:12/10/2023 17:15:37 ACR BI-RADS Category 1: Negative 3341F PARENCHYMAL PATTERN: (A) - The breast(s) demonstrate(s) scattered fibroglandular densities. BI-RADS CATEGORY: (1) - 1 RECOMMENDATION: (ANNUAL) - Recommend routine annual screening mammography. [id number] 1 year screening LATERALITY: (B)
== END 2023-12-10 12:25 | disposition home or self-care (01) ==
LOC: DI.N 12:24
DX: Z12.31 Encounter for screening mammogram for malignant neoplasm of breast (principal); R92.323 Mammographic fibroglandular density, bilateral breasts

== ENCOUNTER 2024-01-08 16:28 | Emergency (ER) | payer OTHER ==
[2024-01-08 16:42] VITALS: O2SAT 99
[2024-01-08 16:56] LABS: BASOPHILS # (AUTO) 0.1 10^3/uL (0.0-0.1); BASOPHILS % (AUTO) 1.2 %; EOSINOPHILS # (AUTO) 0.2 10^3/uL (0.0-0.7); EOSINOPHILS % (AUTO) 4.6 %; HCT - HEMATOCRIT 40.9 % (37.0-47.0); HGB - HEMOGLOBIN 13.3 g/dL (12.0-16.0); LYMPHOCYTES # (AUTO) 1.6 10^3/uL (1.5-3.5); LYMPHOCYTES % (AUTO) 36.7 %; MEAN CORPUSCULAR HGB CONC 32.5 g/dL (32.0-36.0); MEAN CORPUSCULAR VOLUME 89.1 fL (81.0-99.0); MEAN PLATELET VOLUME 8.9 fL (7.9-10.8); MONOCYTES # (AUTO) 0.3 10^3/uL (0.0-1.0); MONOCYTES % (AUTO) 6.5 %; NEUTROPHILS # (AUTO) 2.2 10^3/uL (1.5-6.6); NEUTROPHILS % (AUTO) 50.5 %; PLT - PLATELET COUNT 216 10^3/uL (130-450); RED BLOOD COUNT 4.59 10^6/uL (4.20-5.40); RED CELL DISTRIBUTION WIDTH 12.1 % (12.0-15.0); WHITE BLOOD COUNT 4.3 x10^3/uL (4.8-10.8)
--- NOTE | 2024-01-08 17:11 | XRAY Report ---
PROCEDURE: Chest 1V INDICATIONS: Chest pain TECHNIQUE: One view of the chest was acquired. COMPARISON: None. FINDINGS: Surgical changes and devices: None. Lungs and pleura: No pleural effusions or pneumothorax. Lungs are clear. Mediastinum: Mediastinal contours appear normal. Heart size is normal. Bones and chest wall: No suspicious bony lesions. Overlying soft tissues appear unremarkable. IMPRESSION: No acute cardiopulmonary process. Reviewed by: Abilio Mckeon MD on 01/08/2024 5:09 PM PDT Approved by: Abilio Mkceon MD on 01/08/2024 5:09 PM PDT Station ID: [id number]
[2024-01-08 17:16] LABS: TROPONIN I HIGH SENSITIVITY 2.5 ng/L (2.3-14.8)
[2024-01-08 17:28] LABS: ALBUMIN 4.2 g/dL (3.2-5.5); ALBUMIN/GLOBULIN RATIO 1.3 (1.0-2.2); BILIRUBIN,TOTAL 0.6 mg/dL (0.2-1.0); CALCIUM 9.4 mg/dL (8.5-10.3); POTASSIUM 3.6 mmol/L (3.5-4.5); TOTAL PROTEIN 7.4 g/dL (6.4-8.9)
--- NOTE | 2024-01-08 17:32 | ED Physician Documentation ---
PD HPI CHEST PAIN - Stated complaint Stated Complaint: CHEST PX - Chief complaint Chief Complaint: Cardiac - Additional information Additional information: 58-year-old female presents emergency department with chest pain. She has a history of heart murmur, type 2 diabetes, on and off chest pain. Patient reports that she woke around 4 AM this morning with chest pain that she describes as sharp shooting. This pain lasts about 2 to 3 seconds at a time and it does not appear to be exertional. 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 No shortness of breath no dizziness no unilateral leg swelling or pain. No recent medication changes PD PAST MEDICAL HISTORY - Past Medical History Past Medical History: Yes Cardiovascular: Murmur Endocrine/Autoimmune: Type 2 diabetes - Past Surgical History Past Surgical History: Yes /[employer] SALES [employer]OUNT [employer]GER: section - Present Medications Home Medications: Ambulatory Orders Medication Instructions Recorded Confirmed Glipizide [Glipizide Xl] 5 mg PO DAILY 01/08/24 01/08/24 Levothyroxine Sodium [Synthroid] 50 mcg PO DAILY 01/08/24 01/08/24 Metoprolol Succinate [Toprol Xl] 50 mg PO DAILY 01/08/24 01/08/24 Rosuvastatin Calcium [Crestor] 20 mg PO DAILY 01/08/24 01/08/24 Semaglutide [Ozempic] 1 mg SQ OAW 01/08/24 01/08/24 - Allergies Allergies/Adverse Reactions: Allergies Allergy/AdvReac Type Severity Reaction Status Date / Time aspirin Allergy Unknown Verified 01/08/24 16:36 ibuprofen [From Motrin] Allergy Unknown Verified 01/08/24 16:36 - Social History Does the pt smoke?: No Smoking Status: Never smoker Does the pt drink ETOH?: Yes Does the pt have substance abuse?: No - Immunizations Immunizations are current?: Yes PD ED PE NORMAL - Vitals Vital signs reviewed: Yes - General General: Alert and oriented X 3, No acute distress, Well developed/nourished - HEENT HEENT: Atraumatic, PERRL - Neck Neck: Supple, no meningeal sign - Cardiac Cardiac: RRR, No gallop, Strong equal pulses. No: No murmur - Respiratory Respiratory: No respiratory distress, Clear bilaterally - Abdomen Abdomen: Normal bowel sounds, Soft - Derm Derm: Normal color, Warm and dry, No rash - Extremities Extremities: No edema, No calf tenderness / cord Results - Vitals Vitals: Vital Signs - 24 hr 01/08/24 01/08/24 16:36 19:11 Temperature 36.4 C L 36.1 C L Heart Rate 91 76 Respiratory 18 17 Rate Blood Pressure 138/75 H 140/83 H O2 Saturation 99 99 Oxygen O2 Source Room air - EKG (time done) 1634 EKG releavant findings:: EKG personally interpreted by author of this note. Relevant findings are: Rate: Rate (enter#) (55) Rhythm: NSR [place]: Normal Intervals: Normal NC QRS: Normal Ischemia: Normal ST segments Other comments: Other comments (Probable left atrial enlargement) Computer interpretation: Agree with computer - Labs Labs: Laboratory Tests 01/08/24 01/08/24 16:50 16:50 WBC 4.3 L RBC 4.59 Hgb 13.3 Hct 40.9 MCV 89.1 MCH 29.0 MCHC 32.5 RDW 12.1 Plt Count 216 MPV 8.9 Neut # (Auto) 2.2 Lymph # (Auto) 1.6 [place] # (Auto) 0.3 Eos # (Auto) 0.2 Baso # (Auto) 0.1 Absolute Nucleated RBC 0.00 Nucleated RBC % 0.0 Sodium 137 Potassium 3.6 Chloride 105 Carbon Dioxide 25 Anion Gap 7.0 BUN 9 Creatinine 1.0 Estimated GFR (MDRD) 57 L Glucose 293 H Calcium 9.4 Total Bilirubin 0.6 AST 30 ALT 32 Alkaline Phosphatase 64 Troponin I High Sens 2.5 Total Protein 7.4 Albumin 4.2 Globulin 3.2 Albumin/Globulin Ratio 1.3 Lipase 123 H - Rads (name of study) Chest x-ray Relevant Findings:: Final report received, EMP independent interpretation of test, Other (No acute cardiopulmonary abnormalities) PD Medical Decision Making - ED course ED course: Exam without evidence of volume overload so doubt heart failure. EKG without signs of active ischemia. Given the timing of pain to ER presentation, single troponin was negative so doubt NSTEMI. Presentation not consistent with acute PE (PERC negative),pneumothorax (not visualized on chest xr), thoracic aortic dissection, pericarditis, tamponade, pneumonia (no infectious symptoms, clear chest xr), myocarditis (no recent illness, neg trop). HEART score: 3 so plan to discharge patient home with PCP follow up. I did speak with [facility] cardiology who is more familiar with patient as the patient is a patient of [facility] cardiology they said okay to discharge and will follow-up with her outpatient. All questions answered patient safe for discharge. Departure - Departure Disposition: 01 Home, Self Care Clinical Impression: Chest pain Instructions: Heart Attack Warning Signs, ED Chest Pain Atypical Unkn Cause Comments: Thank you for trusting us with your care as we discussed I have reached out to [facility] cardiology and they do not advise any further workup at this point in time. They are recommending following up with Dr. Díaz outpatient and let him know about today's ER visit. Please come back to the emergency department if you are having any worsening chest pain symptoms, nausea vomiting, or any other concerning symptoms. Forms: PCP List Discharge Date/Time: 01/08/24 19:12
[2024-01-08 19:15] VITALS: BP 140/83
== END 2024-01-08 19:12 | disposition home or self-care (01) ==
LOC: ED 16:28
DX: R07.9 Chest pain, unspecified (principal)
CPT/HCPCS: 36415; 80053; 83690; 84484; 85025; 93005; 99284

== ENCOUNTER 2024-02-07 07:20 | Outpatient (CLI) | payer OTHER ==
[2024-02-07 12:35] LABS: ALBUMIN 4.6 g/dL (3.2-5.5); ALBUMIN/GLOBULIN RATIO 1.5 (1.0-2.2); ALKALINE PHOSPHATASE 68 IU/L (42-121); ALT ALANINE AMINOTRANSFERASE 38 IU/L (10-60); AST ASPARTATE AMINOTRANSFERASE 37 IU/L (10-42); BILIRUBIN,TOTAL 0.6 mg/dL (0.2-1.0); BUN - BLOOD UREA NITROGEN 13 mg/dL (6-20); CALCIUM 9.8 mg/dL (8.5-10.3); CARBON DIOXIDE - CO2 29 mmol/L (21-32); CHLORIDE 104 mmol/L (101-111); CHOL/HDL RATIO 2.6 (<4.4); CHOLESTEROL 178 mg/dL; CREATININE 0.8 mg/dL (0.6-1.3); GFR - MDRD 73 (>89); GLUCOSE 150 mg/dL (74-104); HDL CHOLESTEROL 68 mg/dL; LDL CHOLESTEROL,CALCULATED 82 mg/dL; LDL/HDL RATIO 1.2 (<4.4); POTASSIUM 4.3 mmol/L (3.5-4.5); SODIUM 138 mmol/L (135-145); TOTAL PROTEIN 7.7 g/dL (6.4-8.9); TRIGLYCERIDES 140 mg/dL; VLDL CHOLESTEROL 28 mg/dL
[2024-02-07 12:41] LABS: ESTIMATED AVERAGE GLUCOSE 183 mg/dL (70-100)
== END 2024-02-07 07:21 | disposition home or self-care (01) ==
LOC: LAB.N 07:20
PROVIDERS: ATTEND Physician Assistant Medical
DX: E11.9 Type 2 diabetes mellitus without complications (principal); R07.9 Chest pain, unspecified
CPT/HCPCS: 36415; 80053; 80061; 83036; 83721